=== PATIENT | female | born 1950 | race Caucasian/White ===

== ENCOUNTER 2018-08-18 07:23 | Day surgery (SDC) | payer MEDICARE ==
[~2018-08-18 07:23] MED LIST: CEFAZOLIN 2 Gram 2 GM/50 ML BAG IVPB ONE; CELECOXIB 100 MG CAPSULE PO ONE; FAMOTIDINE 20MG TABLET PO ONE; MECLIZINE 25 MG TABLET PO ONE; METOCLOPRAMIDE 10 MG TABLET PO ONE
[2018-08-18] MEDS ORDERED: EPHEDRINE SULFATE 50 MG/ML ML IV ONE (07:24)
[2018-08-18] MEDS ORDERED: LIDOCAINE 2% MDV (20MG/ML) 20ML VIAL IV ONE (07:24)
[2018-08-18] MEDS ORDERED: MIDAZOLAM HCL 2MG/2ML VIAL IV ONE (07:24)
[2018-08-18] MEDS ORDERED: TRANEXAMIC ACID 1,000 MG/10 ML ML IV ONE (07:24)
[2018-08-18] MEDS ORDERED: DEXAMETHASONE 4 MG/ML 1ML VIAL IVP ONE (07:24)
[2018-08-18] MEDS ORDERED: ROPIVACAINE HCL (NAROPIN) /PF 5MG/ML 20ML VIAL IV ONE (07:24)
[2018-08-18] MEDS ORDERED: FENTANYL PF 100MCG/2ML VIAL IV ONE (07:24)
[2018-08-18] MEDS ORDERED: PROPOFOL 10 MG/ML VIAL IV ONE (07:24)
[2018-08-18] MEDS ORDERED: PHENYLEPHRINE HCL 10 MG/ML VIAL IVP ONE (07:24)
[2018-08-18] MEDS ORDERED: SENNOSIDES/DOCUSATE SODIUM UD CAPSULE PO PRN (10:45)
[2018-08-18] MEDS ORDERED: HYDROMORPHONE HCL 2 MG/ML VIAL IV PRN (10:45)
[2018-08-18] MEDS ORDERED: DIPHENHYDRAMINE HCL 25 MG CAPSULE PO PRN (10:45)
[2018-08-18] MEDS ORDERED: MAGNESIUM HYDROXIDE 30 ML UDC PO PRN (10:45)
[2018-08-18] MEDS ORDERED: ZOLPIDEM TARTRATE 5 MG TABLET PO PRN (10:45)
[2018-08-18] MEDS ORDERED: TRAMADOL HCL 50 MG TABLET PO PRN ×2 (10:45)
[2018-08-18] MEDS ORDERED: AL HYDROX/MAG HYDROX 30ML UD PO PRN (10:45)
[2018-08-18] MEDS ORDERED: METOCLOPRAMIDE HCL 10 MG/2 ML VIAL IVP PRN (10:45)
[2018-08-18] MEDS ORDERED: HYDROCODONE/APAP 5/325MG TABLET PO PRN ×2 (10:46)
[2018-08-18] MEDS: RINGERS SOLUTION,LACTATED 1,000 ML IV SCH (12:25)
[2018-08-18] MEDS ORDERED: TRANEXAMIC ACID 1,000 MG in 0.9 % SODIUM CHLORIDE 100ML 100 ML IVPB ONE (13:00)
--- NOTE | 2018-08-18 14:32 | Rehab Evaluation ---
Patient Information - Patient Information Diagnosis: OA L knee, s/p TKA Ordered Treatment: PT Evaluate and Treat Status: Initial Evaluation Surgery: Yes (L TKA) Date of Surgery: 08/18/18 History: Detail (Pt describes chronic degeneration of L knee, the pain of which was relieved for about 4 months with Celebrex, then it stopped working. She recently moved to [place] from [place] (in April 2018) and promptly sought ortho consult to address L knee pain.) Past Medical/Surgical Hx: PAST MEDICAL/SURGICAL HISTORY Past Surgical History right partial knee replacement D and C PMH - Respiratory Hx Respiratory Disorders No PMH - Cardiovascular Hx Cardiovascular Disorders No Exercise Tolerance Fair Hx of Migraines Yes: in past Comment: D/T knee pain PMH - Neuro Hx Neurological Disorders Yes PMH - GI Hx Gastrointestinal Disorders No PMH - Hx Genitourinary Disorders No PMH - Endocrine Hx Endocrine Disorders No PMH - Musculoskeletal Hx Musculoskeletal Disorders Yes Hx Arthritis Yes: left knee and hands PMH - Psych Hx Psychiatric Problems Yes Hx Anxiety Yes Hx Depression Yes PMH - Hematology/Oncology Hx Hematology/Oncology No Disorders Premorbid Status: Detail (Pt states that she was ambulating with a single tip cane prior to surgery because of L knee pain. She reports a history of falls associated with R knee instability prior to R partial knee replacement many years ago, but none in the past six months. She notes that her activity level had declined significantly because of L knee pain.) Social History: Detail (Pt lives in a single story house with her with a single step at the entrance, no handrail. will be available for assistance upon discharge. She has a tub/shower combination with grab bars and hand-held shower, and elevated toilet. She borrowed a walker which is in her room, and it was adjusted to proper height. She has a cane and shower bench.) Precautions: [place], Fall - Time With Patient Total Time Spent With Patient (Min): 50 Treatment Procedures: Detail (PT Evaluation, initation of gait, review of beginning HEP.) Subjective Information - Subjective Information Per Patient (Pt asleep in bed upon arrival, awakened fairly easily; cooperative for therapy. Reported no pain in L knee.) Objective Data - Pain Pain Present: No Pain Intensity: 0 Pain Scale Used: Numeric (1 - 10) - Mental Status Patient Orientation: Oriented x3 - Visual Perception Appears within normal limits for therapeutic activities - ROM Not within normal limits (AROM in R hip/knee/ankle and L hip/ankle is grossly WNL in all planes of motion. L knee is mildly restricted in flexion and extension due to bulky dressing, approximately -5 degrees extension to 85 degrees flexion.) - Strength/Tone Not within normal limits (3-/5 strength in L hip flexion, abduction, L knee flexion and extension; 3/5 L hip adduction and extension; 4/5 L ankle dorsiflexion. All major muscle groups of R LE are grossly 4 to 4+/5.) - Coordination Appears within normal limits for therapeutic activities - Bed Mobility Needs Assist (Required assistance to move L LE off of and onto bed. Used bedrail to help with scooting, rolling.) - Transfers Needs Assist (Required CGA and verbal cues for sit<>stand transfers with front wheeled walker.) - Balance Balance Sitting: Good Balance Standing: Good (With front wheeled walker.) - Sensation Intact - Gait Detail (Ambulated about 50 feet from bedside out to hallway to next room and back to bedside WBAT L LE and front wheeled walker, and CGA as well as assist for IV pole.) Therapy Assessment - Therapy Assessment Detail (Pt exhibits mobility, transfer, and gait impairments consistent with her post-surgical condition. She is a good candidate for inpatient physical therapy.) Patient Education - Patient Education Teaching Topic: Disease Process, Equipment Use, Exercise/Activity Response: Verbalize Understanding Teaching Method: Discussion, Demonstration Teaching Recipient: Patient Barriers To Learning: None Problem List - Problem List Physical Therapy Problem List: Detail (1. Requires assist for bed mobility. 2. Requires assist for transfers. 3. Difficulty walking. 4. Impaired ROM and strength in L LE.) Goals - Goals Physical Therapy Goals: 1. Pt will get in/out of bed w/SBA. 2. Pt will perform sit/stand transfers w/SBA. 3. Pt will safely ambulate over household distances and steps w/front wheeled walker w/CGA/supervision. 4. Pt will be independent with basic home exercise program. Prognosis - Prognosis Good Plan - Plan Physical Therapy Plan: Pt will be seen 1-2x tomorrow to facilitate bed mobility , transfers, gait, and home exercise program for safe return to home.
[2018-08-18] MEDS: OXYCODONE HCL/APAP 5MG/325MG TABLET PO PRN ×3 (15:25→22:03)
[2018-08-18] MEDS: CEFAZOLIN 2 Gram 2 GM/50 ML BAG IVPB SCH (16:12)
[2018-08-18] MEDS ORDERED: TRAZODONE 50 MG TABLET PO SCH (22:00)
[2018-08-18] MEDS: ASPIRIN 325 MG TAB ENTERIC-COATED PO SCH (22:03)
[2018-08-19] MEDS: CEFAZOLIN 2 Gram 2 GM/50 ML BAG IVPB SCH ×2 (00:44→08:41)
[2018-08-19] MEDS: RINGERS SOLUTION,LACTATED 1,000 ML IV SCH (03:07)
[2018-08-19] MEDS: OXYCODONE HCL/APAP 5MG/325MG TABLET PO PRN ×2 (03:22→08:43)
--- NOTE | 2018-08-19 08:41 | Operative Note ---
DATE OF SURGERY: 08/18/2018 Surgeon: Ian Medina DO PREOPERATIVE DIAGNOSIS: Primary osteoarthritis of the left knee. POSTOPERATIVE DIAGNOSIS: Primary osteoarthritis of the left knee. OPERATION: Left total knee arthroplasty. DESCRIPTION OF PROCEDURE: This 68-year-old female was taken to the operating room and placed in the supine position on the operating room table. Subsequently, spinal anesthesia was induced. The left lower extremity was then elevated, prepped with Hibiclens, and draped in the usual sterile fashion. It was exsanguinated and the tourniquet inflated to 300 mmHg. All scrub personnel wore personal isolation suits. An anterior longitudinal midline incision was made followed by a medial parapatellar arthrotomy incision. An intracondylar drill hole was made for the intramedullary alignment enrique, and distal femoral cutting block was set at 9 mm 5-degree valgus cut. The appropriate cut was made. Sizing jig was affixed. There was somewhat of an AP ML mismatch and with the AP length being significantly larger than the ML and subsequently we moved the cutting block 2 mm anteriorly and were able to fit a size 65 femur. This block was then pinned in 3 degrees of external rotation. The appropriate cuts were made. We then directed our attention to the proximal tibia, and an extramedullary alignment guide was used to cut the proximal tibia referencing a 10 mm cut off the lateral tibial plateau. After the appropriate rotation was assured, a 3-degree posterior slope cut was made and the wafer of bone was removed. This was not quite deep enough to get below the subchondral bone; therefore, an additional 2 mm was taken. We then copiously irrigated the knee removing all debris. The stem punch was used on the tibia which had been measured to a size 71. All osteophytes and remnants of the menisci were removed. Trial components inserted with a 65 femur and first a 10 mm bearing followed by an 11 mm bearing which gave us full extension and excellent stability throughout the range of motion. The patella was then cut and restored to anatomic height with a 34 x 7.8 mm trial. No instability of the patellofemoral joint was identified. All trial components were then removed, and the wound copiously irrigated with pulse lavage, lactated Ringer's solution. All components were cemented into place. The bony surfaces were first dried. Initially the tibial baseplate was cemented into place followed by the insertion of the tibial bearing and subsequently the femoral component and finally the patella. Once the cement had hardened on all components, the knee was again taken through range of motion with excellent stability being noted. A drain was placed through a separate stab incision, and the arthrotomy incision was closed with a #2 Vicryl. The subcutaneous tissue was closed with 0 Vicryl and the skin was stapled. Polar Care was applied. Sterile dressings subsequently applied before the patient was taken to the recovery room. GROSS PATHOLOGY: This patient had advanced osteoarthritis of the medial compartment, full-thickness articular cartilage loss with some mild bone loss in the medial tibial plateau. The patient had osteophytes present posteriorly as well. Final components inserted were a [employer] size 65 cruciate retaining femoral component, a size 71 tibial baseplate, an 11 mm anterior stabilized E1 bearing, and a 34 x 7.8 mm patella was used. KAI
[2018-08-19] MEDS ORDERED: BUPROPION HCL 150 MG TAB.SR.12H PO SCH (10:00)
[2018-08-19] MEDS ORDERED: CELECOXIB 100 MG CAPSULE PO SCH (10:00)
[2018-08-19] MEDS ORDERED: VENLAFAXINE ER 75 MG CAPSULE PO SCH (10:00)
[2018-08-19] MEDS: ASPIRIN 325 MG TAB ENTERIC-COATED PO SCH (10:01)
[2018-08-19] MEDS ORDERED: ACETAMINOPHEN 325 MG TAB PO PRN (10:45)
--- NOTE | 2018-08-19 10:59 | Physical Therapy Tx Note ---
Physical Therapy Tx Note - Treatment Note Tolerated: Good Total Time Spent With Patient: 25 Physical Therapy Tx Note: Detail (The patient was up in a chair when PT arrived. The patient ambulated with front wheeled walker 80 feet x 1 WBAT on the L LE independently. The patient ambulated on 3 steps with supervision for safety only using proper technique. The patient completed HEP of TKA exercises including: heel slides supine, SLR assisted with strap, quad sets, gluteal sets , ankle pumps and hamstring sets. The patient has met all inpatient goals and is discharged from inpatient PT. The patient is to continue with outpatient PT.) Physical Therapy Problem List: Detail (1. Requires assist for bed mobility. 2. Requires assist for transfers. 3. Difficulty walking. 4. Impaired ROM and strength in L LE.) Physical Therapy Goals: 1. Pt will get in/out of bed w/SBA.( Goal Met). 2. Pt will perform sit/stand transfers w/SBA.(Goal Met). 3. Pt will safely ambulate over household distances and steps w/front wheeled walker w/CGA/supervision. ( Goal Met). 4. Pt will be independent with basic home exercise program. (Goal Met) Physical Therapy Plan: The patient has met all inpatient PT goals and is discharged from inpatient PT.
--- NOTE | 2018-08-19 12:38 | Rehab Evaluation ---
Patient Information - Patient Information Diagnosis: OA L knee, s/p TKA Ordered Treatment: OT Evaluate and Treat Status: Initial Evaluation Surgery: Yes (L TKA) Date of Surgery: 08/18/18 History: Detail (Pt describes chronic degeneration of L knee, the pain of which was relieved for about 4 months with Celebrex, then it stopped working. She recently moved to [place] from [place] (in April 2018) and promptly sought ortho consult to address L knee pain.) Past Medical/Surgical Hx: PAST MEDICAL/SURGICAL HISTORY Past Surgical History right partial knee replacement D and C PMH - Respiratory Hx Respiratory Disorders No PMH - Cardiovascular Hx Cardiovascular Disorders No Exercise Tolerance Fair Hx of Migraines Yes: in past Comment: D/T knee pain PMH - Neuro Hx Neurological Disorders Yes PMH - GI Hx Gastrointestinal Disorders No PMH - Hx Genitourinary Disorders No PMH - Endocrine Hx Endocrine Disorders No PMH - Musculoskeletal Hx Musculoskeletal Disorders Yes Hx Arthritis Yes: left knee and hands PMH - Psych Hx Psychiatric Problems Yes Hx Anxiety Yes Hx Depression Yes PMH - Hematology/Oncology Hx Hematology/Oncology No Disorders Premorbid Status: Detail (Pt states that she was ambulating with a single tip cane prior to surgery because of L knee pain. She reports a history of falls associated with R knee instability prior to R partial knee replacement many years ago, but none in the past six months. She notes that her activity level had declined significantly because of L knee pain.) Social History: Detail (Pt lives in a single story ranch house with her with a single step at the entrance, no handrail. will be available for assistance upon discharge. She has a tub/shower combination with grab bars and hand-held shower head, and standard toilet. She plans to obtain a 3-in-1 commode. She borrowed a walker which is in her room, and it was adjusted to proper height, and also has a cane. Pt. reported getting rid of tub bench b/c bathroom is too small, and there is no place in shower for a chair even. Has risers on arm chairs at home. Recently moved to [place] from [place].) Precautions: [place], Fall, Other (WBAT LLE) - Time With Patient Total Time Spent With Patient (Min): 35 Treatment Procedures: Detail (OT NIRAV NUNEZ. Session was concluded with pt. seated in arm chair, with call light and bedside tray within reach.) Subjective Information - Subjective Information Per Patient (R hand dominant) Objective Data - Pain Pain Present: Yes (02/15 LLE d/t just having drain pulled by nursing.) - Mental Status Patient Orientation: Oriented x3 - Visual Perception Appears within normal limits for therapeutic activities - ROM Within normal limits (BUE) - Strength/Tone Within normal limits (BUE WFL. R slightly weaker than L but also has IV currently. RUE MMT 4/5 flex, abd, biceps, and triceps. LUE 4+. Strong gross sql engineer strength bilaterally.) - Coordination Appears within normal limits for therapeutic activities - Transfers Independent (sit<>stand from arm chair to walker. Educ. provided in transfer techniques with min VC for hand placement to reduce fall risk. Pt. returned demo. and verbalized understanding.) - Balance Balance Sitting: Good Balance Standing: Fair - Sensation Intact (BUE light touch intact volar hands) - ADL's/IADL's Detail (Educ. provided in adaptive dressing techniques, and in use of scientific software developer and sock aid if needed. Pt. donned undergarments, t-shirt, and elastic waist pants with modified Ind. using walker and adaptive dressing techniques. Pt. reported she prefers to sponge bathe than to use her tub/shower.) Therapy Assessment - Therapy Assessment Detail (In-pt. OT services not required. Pt. has assistance at home if needed, and has good understanding of available AE and activity modifications.) Patient Education - Patient Education Teaching Topic: Equipment Use, Exercise/Activity Response: Return Demonstration, Verbalize Understanding Teaching Method: Discussion Teaching Recipient: Patient Barriers To Learning: None Problem List - Problem List Physical Therapy Problem List: Detail (1. Requires assist for bed mobility. 2. Requires assist for transfers. 3. Difficulty walking. 4. Impaired ROM and strength in L LE.) Goals - Goals Physical Therapy Goals: 1. Pt will get in/out of bed w/SBA.( Goal Met). 2. Pt will perform sit/stand transfers w/SBA.(Goal Met). 3. Pt will safely ambulate over household distances and steps w/front wheeled walker w/CGA/supervision. ( Goal Met). 4. Pt will be independent with basic home exercise program. (Goal Met) Prognosis - Prognosis Good Plan - Plan Physical Therapy Plan: The patient has met all inpatient PT goals and is discharged from inpatient PT. Occupational Therapy Plan: D/C from in-pt. OT services. Educ. was provided to call rehab dept. if questions/concerns arise.
--- NOTE | 2018-08-22 08:51 | Discharge Summary ---
DATE OF ADMISSION: 08/18/2018 DATE OF DISCHARGE: 08/19/2018 ADMITTING DIAGNOSIS: Osteoarthritis of the left knee. DISCHARGE DIAGNOSIS: Osteoarthritis of the left knee. OPERATIVE PROCEDURE: Left total knee arthroplasty. DESCRIPTION: This 68-year-old female was admitted ot the hospital for elective total knee arthroplasty and tolerated the operative procedure well. She cleared physical therapy, showed no signs of complication during the course of her hospitalization. She was to have outpatient physical therapy. She was to take aspirin 325 mg daily. She was to wear her ELAINE hose during the day and remove them at night. She was given a prescription for Percocet 5/325 mg 1 every 4 hours p.r.n. pain. She was given 40. Routine wound care instructions were given. She will follow up in the clinic in 2 weeks. She is to call me if there are any problems prior to being seen. KAI
== END 2018-08-19 13:30 | disposition home or self-care (01) ==
LOC: SUR 07:23 → MEDSURG 10:55 → SUR 08-19 13:30
PROVIDERS: ATTEND Orthopaedic Surgery
DX: M17.12 Unilateral primary osteoarthritis, left knee (principal); F17.210 Nicotine dependence, cigarettes, uncomplicated
CPT/HCPCS: 27447; 01402; 64447; 76942; J3490 ×2; J3010; J0690 ×2; J2795; 97110; 97530; J2370; J7120